=== PATIENT | male | born 1955 | race Caucasian/White ===

== ENCOUNTER 2017-10-26 08:00 | Outpatient (CLI) | payer MEDICAID ==
[2017-10-26 13:46] LABS: BASOPHILS % (AUTO) 0.5 %; EOSINOPHILS # (AUTO) 0.2 10^3/uL (0.0-0.7); EOSINOPHILS % (AUTO) 3.5 %; HGB - HEMOGLOBIN 13.7 g/dL (14.0-18.0); LYMPHOCYTES # (AUTO) 1.5 10^3/uL (1.5-3.5); LYMPHOCYTES % (AUTO) 32.7 %; MEAN CORPUSCULAR HEMOGLOBIN 29.1 pg (27.0-31.0); MEAN CORPUSCULAR HGB CONC 34.3 g/dL (32.0-36.0); MEAN CORPUSCULAR VOLUME 84.7 fL (80.0-94.0); MEAN PLATELET VOLUME 9.3 fL (7.4-11.4); MONOCYTES # (AUTO) 0.4 10^3/uL (0.0-1.0); MONOCYTES % (AUTO) 8.2 %; NEUTROPHILS # (AUTO) 2.5 10^3/uL (1.5-6.6); NEUTROPHILS % (AUTO) 55.1 %; PLT - PLATELET COUNT 142 10^3/uL (130-450); RED CELL DISTRIBUTION WIDTH 14.3 % (12.0-15.0); WHITE BLOOD COUNT 4.4 x10^3/uL (4.8-10.8)
[2017-10-26 13:59] LABS: BUN - BLOOD UREA NITROGEN 16 mg/dL (6-20); CALCIUM 8.7 mg/dL (8.5-10.3); CARBON DIOXIDE - CO2 27 mmol/L (21-32); CHLORIDE 104 mmol/L (101-111); CHOL/HDL RATIO 5.3 (<5.0); CHOLESTEROL 213 mg/dL; CREATININE 0.9 mg/dL (0.6-1.2); GFR - MDRD 86 (>89); GLUCOSE 91 mg/dL (70-100); HDL CHOLESTEROL 40 mg/dL; LDL CHOLESTEROL,CALCULATED 150 mg/dL; LDL/HDL RATIO 3.8 (<3.6); SODIUM 138 mmol/L (135-145); VLDL CHOLESTEROL 23 mg/dL
== END 2017-10-26 08:01 ==
LOC: LAB.N 08:00
PROVIDERS: ATTEND Physician Assistant Medical
DX: M79.676 Pain in unspecified toe(s) (principal); B35.1 Tinea unguium; M19.049 Primary osteoarthritis, unspecified hand; M19.011 Primary osteoarthritis, right shoulder; M19.012 Primary osteoarthritis, left shoulder; M17.9 Osteoarthritis of knee, unspecified; G89.29 Other chronic pain; M53.80 Other specified dorsopathies, site unspecified; M19.90 Unspecified osteoarthritis, unspecified site
CPT/HCPCS: 36415; 80048; 80061; 83721; 84443; 85025

== ENCOUNTER 2017-11-19 09:38 | Day surgery (SDC) | payer MEDICAID ==
[2017-11-19] MEDS ORDERED: LACTATED RINGERS 1,000 ML IV ONE (09:48)
[2017-11-19 09:59] VITALS: BP 150/70
== END 2017-11-19 09:39 | disposition home or self-care (01) ==
LOC: SDS 09:38
PROVIDERS: ATTEND Internal Medicine Gastroenterology
DX: Z53.09 Procedure and treatment not carried out because of other contraindication (principal); R00.9 Unspecified abnormalities of heart beat
CPT/HCPCS: 93005; J7120

== ENCOUNTER → 2017-11-19 | Outpatient (CLI) | payer MEDICAID | LOC: RT.N 11:18 | PROVIDERS: ATTEND Internal Medicine Gastroenterology | DX: R07.9 Chest pain, unspecified (principal) | CPT/HCPCS: 93005 ==

== ENCOUNTER 2019-04-30 01:59 | Emergency (ER) | payer MEDICAID ==
[2019-04-30] MEDS ORDERED: KETOROLAC 30 MG/ML VIAL IVP STA (03:19)
[2019-04-30 03:41] LABS: BASOPHILS % (AUTO) 0.2 %; EOSINOPHILS # (AUTO) 0.1 10^3/uL (0.0-0.7); EOSINOPHILS % (AUTO) 1.4 %; HGB - HEMOGLOBIN 13.2 g/dL (14.0-18.0); LYMPHOCYTES # (AUTO) 1.2 10^3/uL (1.5-3.5); LYMPHOCYTES % (AUTO) 12.4 %; MEAN CORPUSCULAR HEMOGLOBIN 28.4 pg (27.0-31.0); MEAN CORPUSCULAR HGB CONC 32.7 g/dL (32.0-36.0); MEAN CORPUSCULAR VOLUME 86.9 fL (80.0-94.0); MEAN PLATELET VOLUME 10.7 fL (7.4-11.4); MONOCYTES # (AUTO) 1.2 10^3/uL (0.0-1.0); MONOCYTES % (AUTO) 11.5 %; NEUTROPHILS # (AUTO) 7.4 10^3/uL (1.5-6.6); NEUTROPHILS % (AUTO) 73.9 %; PLT - PLATELET COUNT 158 10^3/uL (130-450); RED BLOOD COUNT 4.65 10^6/uL (4.70-6.10); RED CELL DISTRIBUTION WIDTH 14.9 % (12.0-15.0)
[2019-04-30 04:05] LABS: CALCIUM 9.2 mg/dL (8.5-10.3); CREATININE 0.9 mg/dL (0.6-1.2)
[2019-04-30] MEDS ORDERED: TETRACAINE 0.5% OPHTH DROPS 4 ML LEFTEYE ONE ×2 (04:23→04:41)
--- NOTE | 2019-04-30 04:25 | ED Physician Documentation ---
PD HPI HEADACHE - Stated complaint Stated Complaint: HEAD PX/EYE PX - Chief complaint Chief Complaint: Neuro - History obtained from History obtained from: Patient - History of Present Illness Timing - onset: How many days ago (4) Timing - details: Gradual onset Pain level now: 10 Worst headache ever?: Worst headache ever? (Yes) Location: Left Associated symptoms: Nausea, Eye pain, Vision changes. No: Fever, Stiff neck, Vomiting, Weakness, Numbness, Seizure Contributing factors: Anticoagulated Similar symptoms before: Has not had sx before Recently seen: Not recently seen - Additional information Additional information: This is a 63-year-old man who presents with complaints that for the past 4 days he is been having pain in the left eye and around the eyebrow just been getting increasingly more severe to now it is the worst headache he is ever had. It started out with some floaters in the left eye. He is noted that his vision is very blurry and he has had bilateral cataract surgery in January of this year. He reports minimal photophobia. He is been a little bit nauseous but no vomiting describes his nausea is a "gassy" feeling. He has not had a fever. Tonight he was laying there and just could not get comfortable to sleep so he took some Tylenol it did not seem to help the headache and that is why he decided to come in. He denies having hit his head and has no history of foreign body in the eye. He complains of being chronically dizzy because he is on blood thinners. Denies history of glaucoma. No stuffy nose or sore throat. The patient does have a history of A. fib and had a pacer placed last year. Review of Systems Constitutional: denies: Fever Eyes: reports: Decreased vision, Photophobia. denies: Discharge, Irritation Ears: reports: Other (Chronic cerumen impaction). denies: Ear pain Nose: denies: Rhinorrhea / runny nose, Congestion Throat: denies: Sore throat Cardiac: denies: Palpitations Respiratory: denies: Dyspnea GI: denies: Nausea, Vomiting Neurologic: reports: Headache. denies: Generalized weakness, Focal weakness, Syncope, Confused, Altered mental status, Head injury, LOC PD PAST MEDICAL HISTORY - Past Medical History Past Medical History: Yes Cardiovascular: Atrial fibrillation, Other Respiratory: Asthma Neuro: None Endocrine/Autoimmune: None GI: None : Benign prostate hypertrophy HEENT: Other Psych: None Musculoskeletal: Osteoarthritis, Other Derm: None - Past Surgical History Past Surgical History: Yes Ortho: Carpal Tunnel surgery HEENT: Cataracts, Rhinoplasty, Other - Present Medications Home Medications: Ambulatory Orders Medication Instructions Recorded Confirmed Tamsulosin [Flomax] 0.4 mg PO DAILY 11/18/17 04/30/19 Amoxicillin 875 mg PO BID #20 tablet 04/30/19 Atorvastatin Calcium 04/30/19 Flecainide [Tambocar] 2 tab PO BID 04/30/19 04/30/19 Fluticasone [Flonase] 1 sprays YUNI DAILY #1 bottle 04/30/19 Hydrocodone/Acetaminophen 1 - 2 each PO Q6H PRN #10 tablet 04/30/19 [Hydrocodon-Acetaminophen 5-325] Metoprolol Succinate 1 tab PO DAILY 04/30/19 04/30/19 Warfarin Sodium 04/30/19 - Allergies Allergies/Adverse Reactions: Allergies Allergy/AdvReac Type Severity Reaction Status Date / Time No Known Drug Allergies Allergy Verified 04/30/19 02:11 - Social History Does the pt smoke?: Yes Smoking Status: Current every day smoker Does the pt drink ETOH?: No Does the pt have substance abuse?: No - Immunizations Immunizations are current?: Yes - POLST Patient has POLST: No PD ED PE NORMAL - Vitals Vital signs reviewed: Yes - General General: Alert and oriented X 3, No acute distress, Well developed/nourished - HEENT HEENT: Atraumatic, PERRL, EOMI, Moist mucous membranes, Pharynx benign, Other (Palpation along the left upper orbital rim laterally elicits significant pain to the point that he is pulling back and pushing my hand away. This pain extends up onto the forehead and toward the temporal region and over the temporal artery. There is no swelling or bruising noted there. There is no rash noted on his scalp, ear or forehead. Corneas are clear. Conjunctiva is clear bilaterally.). No: Ears normal (Cerumen impaction bilaterally) - Neck Neck: Supple, no meningeal sign - Respiratory Respiratory: No respiratory distress - Derm Derm: Normal color, Warm and dry, No rash - Extremities Extremities: No edema - Neuro Neuro: Alert and oriented X 3, entry level administrative assistant 2-12 intact, No motor deficit, No sensory deficit, Normal speech - Psych Psych: Normal mood, Normal affect Results - Vitals Vitals: Vital Signs - 24 hr 04/30/19 04/30/19 02:00 02:06 Temperature 36.8 C 36.8 C Heart Rate 68 84 Respiratory 18 18 Rate Blood Pressure 128/63 128/63 O2 Saturation 96 96 Oxygen O2 Source Room air - Labs Labs: Laboratory Tests 04/30/19 04/30/19 04/30/19 03:22 03:22 03:22 WBC 10.0 RBC 4.65 L Hgb 13.2 L Hct 40.4 L MCV 86.9 MCH 28.4 MCHC 32.7 RDW 14.9 Plt Count 158 MPV 10.7 Neut # (Auto) 7.4 H Lymph # (Auto) 1.2 L [place] # (Auto) 1.2 H Eos # (Auto) 0.1 Baso # (Auto) 0.0 Absolute Nucleated RBC 0.00 Nucleated RBC % 0.0 ESR 17 PT INR Sodium 141 Potassium 4.1 Chloride 105 Carbon Dioxide 28 Anion Gap 8.0 BUN 17 Creatinine 0.9 Estimated GFR (MDRD) 86 L Glucose 108 H Calcium 9.2 C-Reactive Protein 4.0 H 04/30/19 03:30 WBC RBC Hgb Hct MCV MCH MCHC RDW Plt Count MPV Neut # (Auto) Lymph # (Auto) [place] # (Auto) Eos # (Auto) Baso # (Auto) Absolute Nucleated RBC Nucleated RBC % ESR PT 20.8 H INR 1.9 H Sodium Potassium Chloride Carbon Dioxide Anion Gap BUN Creatinine Estimated GFR (MDRD) Glucose Calcium C-Reactive Protein PD MEDICAL DECISION MAKING - ED course Complexity details: reviewed results, re-evaluated patient, d/w patient ED course: Patient's sed rate was normal but his CRP is elevated at 4.4. I was concerned about the possibility of temporal arteritis. Fingertip pressures were normal but I am going to measure the pressure in the left eye so asked for some tetracaine drops. He is on Coumadin pro time is pending but I ordered a CT of the head. The patient stated that his headache was now down to being "bearable" at a 4-5/10 and was asking how much longer it was going to because he would really like to get home. 0500: intra-ocular pressure L eye = 36. 0555: The CT scan of the head shows a left frontal sinusitis. When I went in to discuss this with the patient he mentioned that he just had surgery to open things up in both sides of his nose in November. Working to treat this as a sinusitis and he will be given prescriptions for amoxicillin. He has Flonase at home and he is instructed to start using it as well as doing some steam for the next several days to try and open up the sinus and get it to drain. He is on Coumadin so using oral NSAIDs for any length of time is not an option. I will give him a prescription for a few hydrocodone dosings. I am a little concerned with the pressure reading in that left eye. Unfortunately our Irvin-Pen was not working adequately enough for me to compare with the pressure in the right eye. I will try to consult with the tower crane operator that he sees and arrange for follow-up. He clearly does not have acute angle-closure glaucoma here in the department. Pupil is small, the cornea is clear, the conjunctiva is clear and he has more sensitivity to light then pain precipitated by a darkened room. Departure - Departure Disposition: 01 Home, Self Care Clinical Impression: Sinusitis, acute Qualifiers: Sinusitis location: frontal Recurrence: not specified as recurrent Qualified Code(s): J01.10 - Acute frontal sinusitis, unspecified Headache Qualifiers: Headache type: unspecified Headache chronicity pattern: acute headache Intractability: not intractable Qualified Code(s): R51 - Headache Condition: Good Instructions: ED Sinusitis Abx Tx Follow-Up: Dr Criss [Other] Prescriptions: Amoxicillin 875 mg PO BID #20 tablet Fluticasone [Flonase] 1 sprays YUNI DAILY #1 bottle Hydrocodone/Acetaminophen [Hydrocodon-Acetaminophen 5-325] 1 - 2 each PO Q6H PRN #10 tablet PRN Reason: pain Comments: Take the amoxicillin twice a day for 10 days. Use the Flonase in the left nostril and make sure you sniff it up adequately. Use steam to help open up the sinuses and thin the secretions so that they can drain. Take the hydrocodone if needed for pain but do not drive or operate machinery or take additional Tylenol if you are using it. I have attempted to contact the tower crane operator on-call for Dr. Kahn without success. I will talk with them if they do call back this morning, but think you should contact their office on Thursday about the elevated intraocular pressure which could indicate glaucomea and arrange for follow-up to have this reevaluated. Return to the emergency department if you have continued worsening of your vision, increasing pain, vomiting or other problems arise.
[2019-04-30 04:38] LABS: INR 1.9 (0.8-1.2); PT - PROTHROMBIN TIME 20.8 secs (9.9-12.6)
[2019-04-30] MEDS ORDERED: PROPARACAINE 0.5% OPHTH DROPS 15 ML LEFTEYE STA (04:44)
[2019-04-30] MEDS ORDERED: TETRACAINE 0.5% OPHTH DROPS 4 ML ONE (04:48)
--- NOTE | 2019-04-30 05:31 | CT Report ---
Reason: headache Procedure Date: 04/30/2019 Accession Number: [id number] / [id number] Procedure: CT - HEAD WO CPT Code: Final Report FULL RESULT: EXAM: CT HEAD EXAM DATE: 04/30/2019 05:23 AM. CLINICAL HISTORY: Headache. COMPARISON: None. TECHNIQUE: Multiaxial CT images were obtained from the foramen magnum to the vertex. Reformats: Sagittal and coronal. IV contrast: None. In accordance with CT protocol optimization, one or more of the following dose reduction techniques were utilized for this exam: automated exposure control, adjustment of mA and/or KV based on patient size, or use of iterative reconstructive technique. FINDINGS: Parenchyma: No intraparenchymal hemorrhage. No evidence of mass, midline shift, or CT findings of infarction. Roca-white differentiation is distinct. Extraaxial Spaces: Normal for age. No subdural or epidural collections identified. Ventricles: Normal in size and position. Sinuses and Orbits: Air-fluid levels are seen in the left frontal sinus and ethmoid air cells. Mucosal thickening is present in the ethmoid air cells and bilateral maxillary sinuses. Bones: No evidence of fracture or calvarial defect. Other: None. IMPRESSION: Left frontal sinus and ethmoid air cell sinusitis with mild mucosal thickening in the ethmoid air cells and maxillary sinuses. No evidence of intracranial hemorrhage or acute infarct. RADIA
[2019-04-30 06:07] VITALS: BP 121/72
== END 2019-04-30 06:33 | disposition home or self-care (01) ==
LOC: ED 01:59
DX: J01.10 Acute frontal sinusitis, unspecified (principal); J32.2 Chronic ethmoidal sinusitis; H40.052 Ocular hypertension, left eye; R79.82 Elevated C-reactive protein (CRP); F17.200 Nicotine dependence, unspecified, uncomplicated; Z79.01 Long term (current) use of anticoagulants
CPT/HCPCS: 36415; 70450; 80048; 85025; 85610; 85651; 86140; 96374; 99284; J3490

== ENCOUNTER 2020-03-19 08:00 | Outpatient (CLI) | payer MEDICAID ==
[2020-03-19 18:10] LABS: CALCIUM 9.1 mg/dL (8.5-10.3); CREATININE 0.9 mg/dL (0.6-1.2)
== END 2020-03-19 23:59 | disposition home or self-care (01) ==
LOC: LAB 08:00
PROVIDERS: ATTEND Physician Assistant
DX: I48.0 Paroxysmal atrial fibrillation (principal)
CPT/HCPCS: 36415; 80048

== ENCOUNTER 2020-09-27 13:48 | Outpatient (CLI) | payer MEDICAID | END 2020-09-27 13:49 | disposition short-term general hospital (02) | LOC: EMS 13:48 | DX: R42 Dizziness and giddiness (principal); I49.9 Cardiac arrhythmia, unspecified | CPT/HCPCS: A0425; A0429; A0999 ==

== ENCOUNTER 2022-02-16 08:45 | Emergency (ER) | payer MEDICAID ==
--- NOTE | 2022-02-16 09:08 | ED Physician Documentation ---
PD HPI FOCAL NEURO - Stated complaint Stated Complaint: R SIDE FACE WEAKNESS - History obtained from History obtained from: Patient - History of Present Illness Timing - onset: How many days ago (he states he has felt gradual feeling of weakness right side of face for past 2-3 days. More notable today with feeling of dribbliing right corner of mouth today. Does have feeling of symptoms right forehead as well. Had mild symptoms 2 weeks ago when he felt a "pop" in right back of head briefly.) Timing - duration: Days Timing - details: Gradual onset, Still present Severity of deficit: Mild Weakness: Face, Right. No: Arm, Hand, Leg Numbness: No: Face, Arm, Hand, Leg Associated symptoms: Headache (brief "pop" feeling with headache 2 weeks ago right side. No consistent MORIN.), Other (feeling right eye is blurry. No blackened vision. Feels slightly off balance walking past few days.). No: Nausea / vomiting, Syncope, Head injury, Chest pain, Back pain Contributing factors: negative: Anticoagulated, Vascular dz, Atrial fibrillation Baseline status: positive: A&OX3, ambulatory, indep Similar symptoms before: Has not had sx before Recently seen: Not recently seen Review of Systems Constitutional: denies: Fever, Chills, Myalgias Nose: denies: Rhinorrhea / runny nose, Congestion Throat: denies: Sore throat Cardiac: denies: Chest pain / pressure, Palpitations Respiratory: denies: Dyspnea GI: denies: Abdominal Pain, Nausea, Vomiting, Diarrhea Skin: denies: Rash, Lesions Neurologic: reports: Focal weakness. denies: Numbness, Altered mental status, Head injury, LOC PD PAST MEDICAL HISTORY - Past Medical History Cardiovascular: Atrial fibrillation, Other Respiratory: Asthma Neuro: None Endocrine/Autoimmune: None GI: None : Benign prostate hypertrophy HEENT: Other Psych: None Musculoskeletal: Osteoarthritis, Other Derm: None - Past Surgical History Past Surgical History: Yes Ortho: Carpal Tunnel surgery HEENT: Cataracts, Rhinoplasty, Other - Present Medications Home Medications: Ambulatory Orders Medication Instructions Recorded Confirmed Tamsulosin [Flomax] 0.4 mg PO DAILY 11/18/17 04/30/19 Amoxicillin 875 mg PO BID #20 tablet 04/30/19 Atorvastatin Calcium 04/30/19 Flecainide [Tambocar] 2 tab PO BID 04/30/19 04/30/19 Fluticasone [Flonase] 1 sprays YUNI DAILY #1 bottle 04/30/19 Hydrocodone/Acetaminophen 1 - 2 each PO Q6H PRN #10 tablet 04/30/19 [Hydrocodon-Acetaminophen 5-325] Metoprolol Succinate 1 tab PO DAILY 04/30/19 04/30/19 Warfarin Sodium 04/30/19 dexAMETHasone [Decadron] 4 mg PO DAILY #5 tablet 02/16/22 - Allergies Allergies/Adverse Reactions: Allergies Allergy/AdvReac Type Severity Reaction Status Date / Time No Known Drug Allergies Allergy Verified 02/16/22 09:05 - Social History Does the pt smoke?: Yes Smoking Status: Current every day smoker Does the pt drink ETOH?: No Does the pt have substance abuse?: No - Family History Family history: reports: CVA - Immunizations Immunizations are current?: Yes - POLST Patient has POLST: No PD ED PE NORMAL - Vitals Vital signs reviewed: Yes - General General: Alert and oriented X 3, Well developed/nourished - HEENT HEENT: Atraumatic, PERRL, EOMI, Pharynx benign - Neck Neck: Supple, no meningeal sign, No adenopathy, No bruit - Cardiac Cardiac: RRR, No murmur - Respiratory Respiratory: Clear bilaterally - Abdomen Abdomen: Soft, Non tender - Derm Derm: Normal color, Warm and dry, No rash - Extremities Extremities: Normal ROM s pain, Other (steady gait with walking in ER. ) - Neuro Neuro: Alert and oriented X 3, No motor deficit, No sensory deficit, Normal speech. No: cut off [place] 2-12 intact (faint appearance of mouth droop right side, but able to puff cheeks. Normal sensation. Eye closing right not quite as tight. Eyebrow lifting seemed symmetric across forehead. ) Results - Vitals Vitals: Vital Signs - 24 hr 02/16/22 02/16/22 02/16/22 09:00 09:20 09:30 Temperature 36.6 C Heart Rate 67 60 60 Respiratory 16 16 16 Rate Blood Pressure 130/69 117/75 114/73 O2 Saturation 99 96 95 02/16/22 10:30 Temperature Heart Rate 60 Respiratory 12 Rate Blood Pressure 125/79 O2 Saturation 98 Oxygen O2 Source Room air - Labs Labs: Laboratory Tests 02/16/22 02/16/2202/16/22 09:15 09:15 09:15 WBC 7.0 RBC 4.73 Hgb 13.8 L Hct 41.8 L MCV 88.4 MCH 29.2 MCHC 33.0 RDW 14.7 Plt Count 164 MPV 10.1 Neut # (Auto) 4.6 Lymph # (Auto) 1.5 [place] # (Auto) 0.7 Eos # (Auto) 0.2 Baso # (Auto) 0.0 Absolute Nucleated RBC 0.00 Nucleated RBC % 0.0 ESR 8 Sodium 140 Potassium 4.2 Chloride 102 Carbon Dioxide 30 Anion Gap 8.0 BUN 16 Creatinine 1.0 Estimated GFR (MDRD) 75 L Glucose 116 H Calcium 9.5 Magnesium 2.2 Total Bilirubin 0.7 AST 15 ALT 13 Alkaline Phosphatase 80 Total Protein 6.8 Albumin 4.0 Globulin 2.8 Albumin/Globulin Ratio 1.4 Lipase 54 H - Rads (name of study) head CTA Radiology: Prelim report reviewed (no acute structural abnormalities. No noted vessel occlusion/stenosis. ), See rad report PD MEDICAL DECISION MAKING - ED course Complexity details: reviewed results (normal CT-A head/neck. At least no tumors, mass effect, aneurysms/dissection nor LVO/stenoses. I talked with him about potential MRI for futher eval, taylor for small posterior CVA or MS. He says he has stuff to do at home and did not wish admission. He said he will call [place] Thursday for followup.), re-evaluated patient, considered differential (gradual onset right facial weakness mild. Consider Luque Palsy but forehead creases seem symmetric. He also states feeling balance problem with gait. He is able to walk well here. Can get CTA head and labs. ), d/w patient Departure - Departure Disposition: Home, Self Care Clinical Impression: Weakness on right side of face Condition: Stable Record reviewed to determine appropriate education?: Yes Instructions: ED Weakness UKO Follow-Up: [facility] [Provider Group] Prescriptions: dexAMETHasone [Decadron] 4 mg PO DAILY #5 tablet Comments: Your CT scan done without and with IV contrast is normal. This tells us there is no obvious large stroke nor any tumors bleeding localized swelling or blocked major blood vessels. Consideration could still be at a very small area of stroke not large enough to be seen on the CT scan or potentially other brain tissue abnormalities also not seen on CT scan such as multiple sclerosis (MS). An MRI done outpatient and follow-up may be useful to identify these potential problems. Right now activity as usual. Continue regular medications. Stay well-hydrated. The right facial weakness, rather than brain related, may be caused by a facial nerve inflammation and subsequent weakness (Luque's palsy). This would be perhaps more likely in the setting of mainly the face feeling weaker but would not account for problems with balance or such. A Luque's palsy would be treated with an anti-inflammatory steroid medicine daily for several days to decrease nerve inflammation. It is reasonable to start that in take that medicine in case this is just a Luque's palsy. Recheck if worsening symptoms over the next few days. I would suggest a baby aspirin daily. [facility] call tomorrow. Discharge Date/Time: 02/16/22 11:16
[2022-02-16] MEDS ORDERED: SODIUM CHLORIDE 0.9% 1,000 ML IV STA (09:09)
[2022-02-16 09:26] LABS: BASOPHILS % (AUTO) 0.3 %; EOSINOPHILS # (AUTO) 0.2 10^3/uL (0.0-0.7); HCT - HEMATOCRIT 41.8 % (42.0-52.0); HGB - HEMOGLOBIN 13.8 g/dL (14.0-18.0); LYMPHOCYTES # (AUTO) 1.5 10^3/uL (1.5-3.5); LYMPHOCYTES % (AUTO) 21.3 %; MEAN CORPUSCULAR HEMOGLOBIN 29.2 pg (27.0-31.0); MEAN CORPUSCULAR VOLUME 88.4 fL (80.0-94.0); MEAN PLATELET VOLUME 10.1 fL (7.4-11.4); MONOCYTES # (AUTO) 0.7 10^3/uL (0.0-1.0); MONOCYTES % (AUTO) 9.6 %; NEUTROPHILS # (AUTO) 4.6 10^3/uL (1.5-6.6); NEUTROPHILS % (AUTO) 65.5 %; PLT - PLATELET COUNT 164 10^3/uL (130-450); RED BLOOD COUNT 4.73 10^6/uL (4.70-6.10); RED CELL DISTRIBUTION WIDTH 14.7 % (12.0-15.0)
[2022-02-16 09:38] LABS: ALBUMIN/GLOBULIN RATIO 1.4 (1.0-2.2); BILIRUBIN,TOTAL 0.7 mg/dL (0.2-1.0); CALCIUM 9.5 mg/dL (8.5-10.3); MAGNESIUM 2.2 mg/dL (1.7-2.8); POTASSIUM 4.2 mmol/L (3.5-5.0); TOTAL PROTEIN 6.8 g/dL (6.7-8.2)
[2022-02-16 10:34] VITALS: BP 125/79
--- NOTE | 2022-02-16 10:37 | CT Report ---
PROCEDURE: ANGIO HEAD W/WO INDICATIONS: L sided facial droop CONTRAST: IV CONTRAST: Optiray 320 ml: 80 PO CONTRAST: *NO PO CONTRAST TECHNIQUE: Precontrast 4.5 mm thick angled axial sections acquired from the foramen magnum to the vertex. Afte r the administration of intravenous contrast, 1 mm thick sections acquired through the [place] is. Postcontrast 4.5 mm thick sections then re-acquired from the foramen magnum to the vertex. 3-di mensional gptcyqj-gomjnqcha-diodaddorl (MIP) and/or volume rendering reformats were acquired of the c entral intracranial vasculature. For radiation dose reduction, the following was used: automated ex posure control, adjustment of mA and/or kV according to patient size. COMPARISON: CT head 04/30/2019 FINDINGS: Image quality: Excellent. Anterior circulation: Intracranial internal carotid arteries demonstrated on this chronic ossificati ons without significant stenosis.. The flow within the paired anterior cerebral arteries is normal a nd symmetric. The flow within the middle cerebral arteries is normal and symmetric. The anterior co mmunicating artery is seen. Bilateral posterior communicating arteries are seen. No aneurysms are se en. Posterior circulation: Visualized portions of the vertebral arteries demonstrate normal caliber, and join to form a normal appearing basilar artery. Flow within the posterior cerebral arteries is norm al and symmetric. No aneurysms are seen. CSF spaces: Ventricles are symmetric in size and shape. Basal cisterns are patent. No extra-axial fluid collections. Brain: No midline shift. No acute intracranial hemorrhage or mass effect. There is mild generalized cerebral and cerebellar parenchymal volume loss. Mild hypodensities in the subcortical and periventr icular white matter most commonly seen in the setting of chronic microvascular ischemic changes. Skull and face: Calvarium and facial bones appear intact, without suspicious lesions. Sinuses: Visualized sinuses and mastoids are clear. IMPRESSION: 1.No acute intracranial abnormality. 2.No large vessel occlusion or significant intracranial stenosis identified. Reviewed by: Juan Jose Rosario MD on 02/16/2022 9:36 AM STEVEN Approved by: Juan Jose Rosario MD on 02/16/2022 9:36 AM STEVEN Station ID: [id number]
[2022-02-16] MEDS ORDERED: DEXAMETHASONE 10 MG/ML VIAL PO STA (11:04)
[2022-02-16] MEDS ORDERED: CHERRY SYRUP 10 ML UDC PO ONE (11:04)
== END 2022-02-16 11:16 | disposition home or self-care (01) ==
LOC: ED 08:45
DX: R29.810 Facial weakness (principal); F17.200 Nicotine dependence, unspecified, uncomplicated
CPT/HCPCS: 36415; 70496; 80053; 83690; 83735; 85025; 85651; 93005; 99284; A9270; Q9967

== ENCOUNTER 2022-02-20 16:45 | Emergency (ER) | payer MEDICAID ==
[2022-02-20 17:11] VITALS: BP 135/77
[2022-02-20 17:25] LABS: BASOPHILS % (AUTO) 0.1 %; EOSINOPHILS % (AUTO) 0.1 %; HCT - HEMATOCRIT 41.4 % (42.0-52.0); LYMPHOCYTES # (AUTO) 0.8 10^3/uL (1.5-3.5); LYMPHOCYTES % (AUTO) 6.7 %; MEAN CORPUSCULAR HEMOGLOBIN 29.1 pg (27.0-31.0); MEAN CORPUSCULAR HGB CONC 33.8 g/dL (32.0-36.0); MEAN CORPUSCULAR VOLUME 86.1 fL (80.0-94.0); MEAN PLATELET VOLUME 10.3 fL (7.4-11.4); MONOCYTES # (AUTO) 0.6 10^3/uL (0.0-1.0); MONOCYTES % (AUTO) 4.7 %; NEUTROPHILS # (AUTO) 10.9 10^3/uL (1.5-6.6); NEUTROPHILS % (AUTO) 87.3 %; PLT - PLATELET COUNT 185 10^3/uL (130-450); RED BLOOD COUNT 4.81 10^6/uL (4.70-6.10); RED CELL DISTRIBUTION WIDTH 14.9 % (12.0-15.0); WHITE BLOOD COUNT 12.5 x10^3/uL (4.8-10.8)
--- NOTE | 2022-02-20 17:32 | ED Physician Documentation ---
History of Present Illness - Stated complaint Stated Complaint: R SIDE NUMBNESS - Chief complaint Chief Complaint: Neuro - Additonal information Additional information: 66-year-old male presents again to the emergency department for evaluation of right-sided facial pain. Seen in this ER on the for similar. At that time he had a very mild right-sided facial droop at the nasolabial fold. However subsequent CTA of the head was unremarkable. The patient was advised to stay for an MRI the next a.m. however he declined to stay overnight. The patient was discharged with 5 days of Decadron. The patient did follow-up with his primary care provider at the [facility] who made the recommendation that he receive an MRI. The patient was told to go to [place] emergency department today to obtain that MRI but due to some miscommunication he comes back to this emergency department. Unfortunately at this time 1730 on a afternoon MRI is no longer available and will not be available until Thursday a.m. Patient denies any progression of symptoms. Mostly reporting right-sided facial pain. No slurred speech. No focal weakness in the arms or legs. Normal gait. Review of Systems Constitutional: denies: Fever, Chills Eyes: denies: Loss of vision, Decreased vision Ears: reports: Reviewed and negative Nose: reports: Reviewed and negative Throat: reports: Reviewed and negative Cardiac: reports: Reviewed and negative Respiratory: reports: Reviewed and negative GI: reports: Reviewed and negative : reports: Reviewed and negative Skin: reports: Reviewed and negative PD PAST MEDICAL HISTORY - Past Medical History Past Medical History: Yes Cardiovascular: Atrial fibrillation, Other Respiratory: Asthma Neuro: None Endocrine/Autoimmune: None GI: None : Benign prostate hypertrophy HEENT: Other Psych: None Musculoskeletal: Osteoarthritis, Other Derm: None - Past Surgical History Past Surgical History: Yes Ortho: Carpal Tunnel surgery HEENT: Cataracts, Rhinoplasty, Other - Present Medications Home Medications: Ambulatory Orders Medication Instructions Recorded Confirmed Tamsulosin [Flomax] 0.4 mg PO DAILY 11/18/17 04/30/19 Amoxicillin 875 mg PO BID #20 tablet 04/30/19 Atorvastatin Calcium 04/30/19 Flecainide [Tambocar] 2 tab PO BID 04/30/19 04/30/19 Fluticasone [Flonase] 1 sprays YUNI DAILY #1 bottle 04/30/19 Hydrocodone/Acetaminophen 1 - 2 each PO Q6H PRN #10 tablet 04/30/19 [Hydrocodon-Acetaminophen 5-325] Metoprolol Succinate 1 tab PO DAILY 04/30/19 04/30/19 Warfarin Sodium 04/30/19 dexAMETHasone [Decadron] 4 mg PO DAILY #5 tablet 02/16/22 - Allergies Allergies/Adverse Reactions: Allergies Allergy/AdvReac Type Severity Reaction Status Date / Time No Known Drug Allergies Allergy Verified 02/20/22 16:54 - Social History Does the pt smoke?: Yes Smoking Status: Current every day smoker Does the pt drink ETOH?: No Does the pt have substance abuse?: No - Immunizations Immunizations are current?: Yes - POLST Patient has POLST: No PD ED PE EXPANDED - General General: Alert, No acute distress, Well developed/nourished - Cardiac Cardiac: Regular Rate, Radial strong equal - Respiratory Respiratory: Clear to ausultation [place]. No: Distress, Labored - Neuro Neuro: Alert and Oriented X 3, Cerebellar nl, Normal gait, Normal finger nose, Normal speech. No: CNII-XII intact (Very mild right-sided facial droop at the nasolabial fold though cranial nerves II through XII are grossly intact patient is able to stick out his tongue, Puff his cheeks and pushes tongue. Symmetrical eyebrow raise) - GCS Eye Opening: Spontaneous Motor: Obeys Commands Verbal: Oriented Total: 15 Results - Vitals Vitals: Vital Signs - 24 hr 02/20/22 02/20/22 02/20/22 16:48 16:54 17:24 Temperature 36.2 C L 36.2 C L Heart Rate 61 63 85 Respiratory 16 14 23 Rate Blood Pressure 131/60 H 135/77 H O2 Saturation 96 94 100 02/20/22 17:30 Temperature Heart Rate 60 Respiratory Rate Blood Pressure O2 Saturation Oxygen O2 Source Room air - Labs Labs: Laboratory Tests 02/20/22 02/20/22 02/20/22 17:19 17:19 17:19 WBC 12.5 H RBC 4.81 Hgb 14.0 Hct 41.4 L MCV 86.1 MCH 29.1 MCHC 33.8 RDW 14.9 Plt Count 185 MPV 10.3 Neut # (Auto) 10.9 H Lymph # (Auto) 0.8 L Am[place] # (Auto) 0.6 Eos # (Auto) 0.0 Baso # (Auto) 0.0 Absolute Nucleated RBC 0.00 Nucleated RBC % 0.0 ESR 5 Sodium 132 L Potassium 3.9 Chloride 101 Carbon Dioxide 24 Anion Gap 7.0 BUN 23 H Creatinine 0.9 Estimated GFR (MDRD) 85 L Glucose 130 H Calcium 9.0 PD MEDICAL DECISION MAKING - ED course Complexity details: reviewed results, re-evaluated patient, considered differential, d/w patient ED course: 66-year-old male return to the emergency department for evaluation of persistent right-sided facial pain. No vision changes. He does have a very very mild right-sided facial droop at the nasolabial fold. This is unchanged in appearance according to the documentation from a previous colleague. The patient was recommended to stay overnight with the previous ED visit for an MRI in the a.m. but he declined. He was supposedly to go to [facility] today for an MRI but due to miscommunication issues ends up here. Unfortunately at this time MRI is not available. MRI will not be available until Thursday a.m. I did repeat screening labs today. I do note a mild increase in his white blood cell count to 12,000. This is likely secondary to the course of steroids that he has been on. I repeated his sedimentation rate and it it is 5. I have lower suspicion at this time for a temporal arteritis. Unfortunately the imaging that the patient ultimately needs is not available. And given now that he has had persistent symptoms for about 5 to 6 days it is no longer emergent. The patient is at this time stable for discharge home. I am encouraging him to have close follow-up with his primary care provider for the appropriate outpatient MRI testing that will be necessary. Emergent return precautions were otherwise discussed for worsening symptoms Departure - Departure Disposition: Home, Self Care Clinical Impression: Right sided facial pain Condition: Stable Record reviewed to determine appropriate education?: Yes Comments: Ari aden the test that you need for evaluation of the right-sided facial pain as well as the very mild droop on the right side of the face is an MRI. MRI is not available at [facility] until Thursday. Your symptoms do not seem to have changed since your last ER visit at which time you had been recommended to remain overnight in order to obtain the MRI imaging. I encourage you to continue to take your usual medications. Follow-up with your primary care provider. If at any point you find that your symptoms worsen, you have slurred speech facial droop weakness in your arms or legs then you should return immediately to the ER.
[2022-02-20 17:33] LABS: CREATININE 0.9 mg/dL (0.6-1.2); POTASSIUM 3.9 mmol/L (3.5-5.0)
== END 2022-02-20 18:00 | disposition home or self-care (01) ==
LOC: ED 16:45
DX: R51.9 Headache, unspecified (principal); R20.0 Anesthesia of skin; R29.810 Facial weakness; I48.91 Unspecified atrial fibrillation; F17.200 Nicotine dependence, unspecified, uncomplicated
CPT/HCPCS: 36415; 80048; 85025; 85651; 99281; 99283

== ENCOUNTER 2022-09-26 15:08 | Outpatient (CLI) | payer OTHER ==
--- NOTE | 2022-09-26 18:00 | CT Report ---
PROCEDURE: HEAD WO INDICATIONS: HEADACHE, SEIZURE TECHNIQUE: Noncontrast 4.5 mm thick angled axial sections acquired from the foramen magnum to the vertex. For r adiation dose reduction, the following was used: automated exposure control, adjustment of mA and/or kV according to patient size. COMPARISON: 02/16/2022, 04/30/2019 FINDINGS: Image quality: There is streak artifact seen through the skull base. CSF spaces: Basal cisterns are patent. No extra-axial fluid collections. Ventricles are normal in size and shape. Brain: No midline shift. No intracranial masses or hemorrhage. Roca-white matter interface is norm al. Skull and face: Calvarium and visualized facial bones are intact, without suspicious lesions. Sinuses: Visualized sinuses and mastoids are clear. IMPRESSION: Unremarkable noncontrast head CT for age. Reviewed by: Сергей Seth MD on 09/26/2022 4:59 PM [facility] Approved by: Сергей Seth MD on 09/26/2022 4:59 PM [facility]KAY[facility] Station ID: [id number]
== END 2022-09-26 15:09 | disposition home or self-care (01) ==
LOC: DI 15:08
PROVIDERS: ATTEND Psychiatry & Neurology Neurology
DX: G44.59 Other complicated headache syndrome (principal)

== ENCOUNTER 2023-05-04 08:47 | Outpatient (CLI) | payer OTHER ==
--- NOTE | 2023-05-04 10:47 | CT Report ---
PROCEDURE: HEAD WO INDICATIONS: NEW ONSET SZ TECHNIQUE: Noncontrast 4.5 mm thick angled axial sections acquired from the foramen magnum to the vertex. For r adiation dose reduction, the following was used: automated exposure control, adjustment of mA and/or kV according to patient size. COMPARISON: 01/26/2023. FINDINGS: Image quality: Excellent. CSF spaces: Basal cisterns are patent. No extra-axial fluid collections. Ventricles are normal in size and shape. Brain: No midline shift. No intracranial masses or hemorrhage. Roca-white matter interface is norm al. Age-related volume loss and mild, age-appropriate small vessel ischemic change. Intracranial car otid calcifications. Skull and face: Calvarium and visualized facial bones are intact, without suspicious lesions. Sinuses: Visualized sinuses and mastoids are clear. IMPRESSION: No acute intracranial pathology. Reviewed by: Ron Pino MD on 05/04/2023 10:[address] [facility] Approved by: Ron Pino MD on 05/04/2023 10:[address] [facility] Station ID: [id number]
== END 2023-05-04 08:48 | disposition home or self-care (01) ==
LOC: DI 08:47
PROVIDERS: ATTEND Psychiatry & Neurology Neurology
DX: R56.9 Unspecified convulsions (principal)